=== PATIENT | male | born 1960 | race Caucasian/White ===

== ENCOUNTER → 2016-12-11 | Outpatient (CLI) | payer BC ==
--- NOTE | 2016-12-11 12:59 | US ---
EXAMINATION TYPE: US thyroid st tissue head/neck DATE OF EXAM: 12/11/2016 10:22 AM COMPARISON: NONE CLINICAL HISTORY: 56-year-old male E04.1 Thyroid nodule,E03.9 Hypothyroidism. On Synthroid. Patient s tates that the doctor felt a nodule. TECHNIQUE: Multiple sonographic images of the thyroid gland are obtained. FINDINGS: Right Lobe: 3.2 x 0.9 x 1.2 cm Left Lobe: 3.3 x 0.8 x 1.3 cm Isthmus Thickness: 0.1 cm There is heterogeneous glandular parenchyma without discrete nodule. Bilateral neck scanned, no abnormal lymphadenopathy noted. IMPRESSION: Small and heterogeneous thyroid gland. Findings suggest diffuse thyroiditis. No discrete nodule seen.
== END | disposition home or self-care (01) ==
LOC: RADUSWWP 09:29
PROVIDERS: ATTEND Family Medicine
DX: E03.9 Hypothyroidism, unspecified (principal)
CPT/HCPCS: 76536

== ENCOUNTER → 2020-10-12 | Outpatient (CLI) | payer BC ==
--- NOTE | 2020-10-12 14:40 | XR ---
Lumbosacral spine HISTORY: Low back pain 5 views of lumbosacral spine No comparisons Bone mineralization is reduced. Loss of disc height is greatest at L4-5, L5-S1, there is associated v acuum phenomenon. There is multilevel spondylosis. Sclerosis present in the posterior elements. No ev ident spondylolysis. Dense vascular calcifications noted incidentally. IMPRESSION: Degenerative disc disease, facet arthropathy, osteopenia.
== END | disposition home or self-care (01) ==
LOC: RADXRYALE 09:51
PROVIDERS: ATTEND Physician Assistant Medical
DX: M51.36 Other intervertebral disc degeneration, lumbar region (principal); M47.816 Spondylosis without myelopathy or radiculopathy, lumbar region; M85.80 Other specified disorders of bone density and structure, unspecified site
CPT/HCPCS: 72110

== ENCOUNTER → 2020-11-13 | Outpatient (CLI) | payer BC ==
--- NOTE | 2020-11-13 11:13 | US ---
EXAMINATION TYPE: US thyroid st tissue head/neck DATE OF EXAM: 11/13/2020 COMPARISON: US CLINICAL HISTORY: E04.1 Thyroid nodule, E03.9 Hypothyroidism. GLAND SIZE: Right Lobe: 2.8 x 1.5 x 1.4 cm Overall Parenchyma: heterogenous Left Lobe: 3.3 x 1.0 x 0.9 cm Overall Parenchyma: heterogeneous Isthmus Thickness: 0.1 cm NODULES RIGHT: # of nodules measured on right: 0 LEFT: # of nodules measured on left: 0 ISTHMUS: # of nodules measured in the isthmus: 0 Bilateral neck scanned, no evidence of lymphadenopathy. IMPRESSION: Normal thyroid ultrasound
== END | disposition home or self-care (01) ==
LOC: RADUSWWP 10:51
PROVIDERS: ATTEND Family Medicine
DX: E04.1 Nontoxic single thyroid nodule (principal); E03.9 Hypothyroidism, unspecified
CPT/HCPCS: 76536

== ENCOUNTER → 2023-10-08 | Outpatient (CLI) | payer BC ==
--- NOTE | 2023-10-08 14:59 | XR ---
EXAMINATION TYPE: XR chest 2V DATE OF EXAM: 10/08/2023 COMPARISON: NONE HISTORY: Asthma with increased shortness of breath. TECHNIQUE: Frontal and lateral views of the chest are obtained. FINDINGS: There is no focal air space opacity, pleural effusion, or pneumothorax seen. The cardiac silhouette size is within normal limits. The osseous structures are intact. IMPRESSION: No acute cardiopulmonary process.
== END | disposition home or self-care (01) ==
LOC: RADXRYALE 14:46
PROVIDERS: ATTEND Physician Assistant
DX: J45.20 Mild intermittent asthma, uncomplicated (principal)
CPT/HCPCS: 71046